=== PATIENT | female | born 1990 ===

== ENCOUNTER → 2020-03-16 13:43 | Outpatient (BNVA) | payer OTHER, SELFPAY | PROVIDERS: Visit Provider Surgery | DX: Z11.59 Encounter for screening for other viral diseases (principal); D3A.020 Benign carcinoid tumor of the appendix | CPT/HCPCS: 87635 ==

== ENCOUNTER 2020-03-19 06:19 | Day surgery (SDC) | payer SELFPAY ==
[2020-03-19 06:31] VITALS: BP 126/76; PULSE 100; RESP 18; TEMP 36.6; O2SAT 98
--- NOTE | 2020-03-19 06:38 | W.PM.OPSUD ---
Surgery/Procedure H&P Update DATE OF PROCEDURE: March 19, 2020 DATE H&P PERFORMED: 03/07/20 H&P UPDATE INFORMATION: I have reviewed H&P completed within last 30 days, I have examined patient prior to procedure and No changes to prior documentation PREOP DIAGNOSIS: Carcinoid of the appendix PRIMARY INDICATION FOR PROCEDURE: The same PLANNED PROCEDURE: Operation Date: 03/19/20 07:00 Proposed Procedures p Colonoscopy 96733 D3A.020(Not Applicable) - Gurwinder Lieberman MD
[2020-03-19 06:41] LABS: OR HCG Qualitative Urine Negative (Negative)
[2020-03-19] MEDS: sodium chloride 0.9% 1,000 ML 30 ML IV (06:49)
--- NOTE | 2020-03-19 06:52 | ANES.PREANE2 ---
Pre-Anesthetic Assessment Pre-Anesthetic Assessment: Height/Weight: Height 1.57 m Weight 86.636 kg Temp Pulse Resp BP Pulse Ox 97.9 F 100 18 126/76 98 03/19/20 06:31 03/19/20 06:31 03/19/20 06:31 03/19/20 06:31 03/19/20 06:31 Preop Diagnosis: screening Proposed Procedure: Operation Date: 03/19/20 07:00 Proposed Procedures p Colonoscopy 11873 D3A.020(Not Applicable) - Gurwinder Lieberman MD Was Beta Gustavo taken within 24 hours: N/A Last intake: Intake Last Liquid Date 03/18/20 Last Liquid Time 20:00 Last Solid Date 03/18/20 Last Solid Time 12:00 Social: Social History: No alcohol and No tobacco Exam: Pre-Anes Outpt Exam: alert, oriented x 3, clear to auscultation bilaterally and regular rate & rhythm Airway: Submandibular: WNL Cervical ROM: WNL MP: 2 History/ROS: No significant history except as noted Pulmonary: Pulmonary: None reported CV/HEM: CV/HEM: None reported : : None reported Hepatic: Hepatic: None reported GI: GI: GERD Metabolic: Metabolic: None reported Musc/skel: Musc/skel: Weakness Neuropsych: Neuropsych: None reported Anesthetic Plan: ASA status: 1 Anesthesia: Anesthesia Evaluation and MAC Risk of > 500 ml blood loss (7ml/kg in children): No Meds/Allergies Current Medications: Current Medications Generic Name Dose Route Start Last Admin Trade Name Freq PRN Reason Stop Dose Admin Sodium Chloride 1,000 mls @ 30 ml s/hr 03/19/20 06:30 03/19/20 06:49 Sodium Chloride 0.9% IV 03/20/20 06:29 30 mls/hr .Q24H DENIS Administration PFSH Anesthesia PFSH: Medical History (Updated 03/08/20 @ 06:52 by Gurwinder Lieberman MD) Carcinoid, of appendix Family History Denies family history of Anesthesia complication Bleeding disorder Social History Smoking and tobacco status: never smoked Data Anesthesia Other Labs: Laboratory Results - last 48 hr 03/19/20 06:25 Urine HCG, Qual Negative Cardiac Studies: No Data to Display
[2020-03-19 07:13] VITALS: BP 87/69; PULSE 85; RESP 18; TEMP 36.4; O2SAT 98
[2020-03-19 07:28] VITALS: BP 118/83; PULSE 84; RESP 18; TEMP 36.6; O2SAT 98
--- NOTE | 2020-03-19 07:45 | ANE.PACU2 ---
Inpatient post-anesthesia follow up: Airway intact: Yes Vital signs: Temperature 98 F Pulse Rate 84 Respiratory Rate 18 Blood Pressure 118/83 Pulse Oximetry 98 Oxygen Delivery Me thod Room Air Oxygen Flow Rate Fraction of Inspir ed Oxygen Hydration adequate: Yes Nausea and vomiting: No Pain level: 1 Mental status: Baseline
== END 2020-03-19 07:45 | disposition home or self-care (01) ==
PROVIDERS: Anesthesiology; Visit Provider Surgery
PROC: 0DJD8ZZ Inspection of Lower Intestinal Tract, Via Natural or Artificial Opening Endoscopic (ICD-10-PCS; CPT 45378; principal; 2020-03-19 07:00)
DX: Z12.11 Encounter for screening for malignant neoplasm of colon (principal); D3A.020 Benign carcinoid tumor of the appendix; K21.9 Gastro-esophageal reflux disease without esophagitis
CPT/HCPCS: 12345; 45378; 84703; J2704; J7030

== ENCOUNTER → 2020-03-30 09:10 | Outpatient (BNVA) | payer SELFPAY | PROVIDERS: Visit Provider Nurse Practitioner Women's Health | DX: Z30.9 Encounter for contraceptive management, unspecified (principal); N72 Inflammatory disease of cervix uteri; Z12.4 Encounter for screening for malignant neoplasm of cervix | CPT/HCPCS: 81025; 87491; 87591; 87661; 88175 ==

== ENCOUNTER → 2020-09-26 09:37 | Outpatient (BNVA) | payer SELFPAY | PROVIDERS: Visit Provider Nurse Practitioner Women's Health | DX: Z30.011 Encounter for initial prescription of contraceptive pills (principal) | CPT/HCPCS: 81025 ==

== ENCOUNTER → 2022-04-23 12:14 | Outpatient (BNVA) | payer SELFPAY | PROVIDERS: Visit Provider Emergency Medicine | DX: R05.9 Cough, unspecified (principal); J02.9 Acute pharyngitis, unspecified | CPT/HCPCS: 87400 ==

== ENCOUNTER → 2023-05-07 09:00 | Outpatient (BNVA) | payer SELFPAY | PROVIDERS: Visit Provider Nurse Practitioner Women's Health | DX: D3A.020 Benign carcinoid tumor of the appendix (principal); Z01.419 Encounter for gynecological examination (general) (routine) without abnormal findings; Z30.431 Encounter for routine checking of intrauterine contraceptive device; C7A.020 Malignant carcinoid tumor of the appendix | CPT/HCPCS: 87624 ==

== ENCOUNTER → 2024-05-19 12:49 | Outpatient (BNVA) | payer OTHER, SELFPAY | PROVIDERS: Visit Provider Nurse Practitioner Women's Health | DX: R87.810 Cervical high risk human papillomavirus (HPV) DNA test positive (principal) | CPT/HCPCS: 87624 ==